=== PATIENT | female | born 2000 | race Two or more races ===

== ENCOUNTER 2025-03-10 15:39 | Observation (INO) | payer MEDICAID ==
[2025-03-10] MEDS ORDERED: PREN-96 PO (17:11)
--- NOTE | 2025-03-10 17:21 | DVH ---
BIOPHYSICAL PROFILE HISTORY: Poly TECHNIQUE: Multiple transabdominal real-time grayscale sonographic images through the gravid uterus of the fetus with duplex Doppler color flow and M-mode spectral analysis FINDINGS: BIOPHYSICAL PROFILE: breathing score: 2 movement score: 2 tone score: 2 Quantitative MERLINE score: 2 (MERLINE: 19.7 cm, mvp: 8.3 cm.) Total score: 8/8 The cervix obscured by head Single live fetus in cephalic presentation. heart rate 151 beats per minute. Anterior Grade 2 placenta without previa or abruption Single live fetus at 37 weeks 0 days Biophysical profile score 8/8 corresponding to an LORY of 03/31/2025 Estimated weight not calculated No other data received IMPRESSION: 1. Biophysical profile score: 8/ 2. FHR: 151bpm
--- NOTE | 2025-03-10 22:24 | DVHDS2 ---
Physician Discharge Progress N Final Diagnosis: Ruled out for polyhydramnios Operations or Procedures: Operations or Procedures 25yo iup@37+wks, pt sent down from Dr. Conklin's office for rule out polyhydramnios. +FM, Denies UCs/LOF/VB/STOVER/vision changes/RUQ pain. VSS NST reactive per RN BPP /, vertex, MERLINE: 19.7 cm FKC/PTL/PreE precautions reviewed Condition on Discharge: Stable Disposition: Home Discharge Instructions: Diet: Regular Activity: No Restrictions, As Tolerated Medications: see med list Follow Up Care: Specialist: f/u with dr. conklin in office as scheduled Discharge Statement: "Patient was advised to return to the ER or call 911 if any headaches, dizziness, shortness of breath, chest pain, abdominal pain, bleeding, fevers, or worsening of medical condition. Patient was counseled about treatment plan, medications, possible side effects, patientverbalized understanding. All questions were answered to the best of my ability. This discharge took greater then 30 minutes in planning, reviewing documentation, counseling the patient, and discussing with other team members." Visit Coding OBGYN Date of Service: Mar 10, 2025 Billing Provider: SACHIN OVIEDO CNM [facility] Common Visit Codes: 60153-[facility] (MOD) DOT [facility]CH[facility] Procedure Codes: 09149-15- NON-STRESS TEST SACHIN OVIEDO CNM Mar 10, 2025 22:24
== END 2025-03-10 17:20 | disposition home or self-care (01) ==
LOC: UNDOADMOB 15:39 → LDRP 15:39 → UNDODISOB 17:20
PROVIDERS: ADMIT Obstetrics & Gynecology; ATTEND Obstetrics & Gynecology
DX: O40.3XX0 Polyhydramnios, third trimester, not applicable or unspecified (principal); Z3A.37 37 weeks gestation of pregnancy; Z98.890 Other specified postprocedural states
CPT/HCPCS: 59025; 76819; 81002; 94760; A4649; G0378